=== PATIENT | female | born 1985 | race Two or more races ===

== ENCOUNTER 2024-08-13 10:40 | Emergency (ER) | payer SELFPAY ==
[~2024-08-13] VITALS: Ht 160 cm; Wt 68.2 kg
[2024-08-13] MEDS ORDERED: HYDR-4072 PO (10:43)
[2024-08-13] MEDS ORDERED: CHOL25TA4 PO (10:43)
[2024-08-13] MEDS ORDERED: PREG50 PO (10:43)
[2024-08-13 10:47] VITALS: TEMP 98.6
[2024-08-13] MEDS: HYDROCODONE/ACETAMINOPHEN 5-325 MG TABLET PO ONE (11:31)
[2024-08-13 13:00] VITALS: BP 124/74; PULSE 77; RESP 17; O2SAT 98
[2024-08-13] MEDS ORDERED: HYDR-4062 PO (13:28)
== END 2024-08-13 14:10 | disposition home or self-care (01) ==
LOC: EMS 10:40
DX: G89.4 Chronic pain syndrome (principal); M25.571 Pain in right ankle and joints of right foot; F17.210 Nicotine dependence, cigarettes, uncomplicated; K21.9 Gastro-esophageal reflux disease without esophagitis; K58.9 Irritable bowel syndrome, unspecified
CPT/HCPCS: 99283